=== PATIENT | male | born 1975 | race Two or more races ===

== ENCOUNTER → 2018-01-21 | Outpatient (CLI) | payer BC ==
[2018-01-21 08:30] VITALS: BP_SYST 115; BP_SYST 118; BP_DIAS 63; BP_DIAS 69
[2018-01-21 09:42] VITALS: BP 107/64
== END | disposition home or self-care (01) ==
LOC: CARDMN 08:05
PROVIDERS: ATTEND Internal Medicine Cardiovascular Disease
DX: I25.10 Atherosclerotic heart disease of native coronary artery without angina pectoris (principal)
CPT/HCPCS: 93017; 93350